=== PATIENT | female | born 1955 | race Caucasian/White ===

== ENCOUNTER 2021-11-01 13:23 | Inpatient (IN) ==
[2021-11-01] MEDS ORDERED: Cefepime HCl 2,000 MG in 0.9 % Sodium Chloride 10 ML IVP ONE (15:28)
[2021-11-01] MEDS ORDERED: Vancomycin 1,250 MG/262.5 ML IV.SOLN IVPB ONE (15:28)
[2021-11-01] MEDS: 0.9 % Sodium Chloride 1,000 ML IVC SCH ×3 (16:10→23:33)
[2021-11-01 16:21] LABS: Basophils # 0.1 K/mcL (0.0-0.2); Basophils % 0.2 %; Eosinophils % 0.1 %; Hematocrit 32.5 % (35.3-44.9); Hemoglobin 10.9 g/dL (11.5-15.4); Immature Granulocytes % 2.3 % (0-4); Lymphocytes # 0.7 K/mcL (0.6-4.6); Lymphocytes % 3.2 %; Mean Corpuscular HGB Conc 33.5 g/dL (31.6-35.5); Mean Corpuscular Hemoglobin 28.3 pg (28.0-33.3); Mean Corpuscular Volume 84.4 fL (83.0-100.0); Mean Platelet Volume 8.8 fL (9.4-12.4); Monocytes # 0.6 K/mcL (0.0-1.3); Monocytes % 2.6 %; Neutrophils # 19.5 K/mcL (1.6-8.9); Platelet Count 155 K/mcL (140-400); Red Blood Count 3.85 M/mcL (3.82-4.97); Red Cell Distribution Width 12.8 % (11.5-14.5); Segmented Neutrophils % 91.6 %; White Blood Count 21.2 K/mcL (4.3-11.1)
[2021-11-01 16:34] LABS: INR 1.5; Prothrombin Time 16.7 Seconds (9.4-12.1)
[2021-11-01 16:37] LABS: Activated Partial Thrombo Time 27.5 Seconds (26.0-36.0)
[2021-11-01 16:44] LABS: Alanine Aminotransferase 20 Units/L (7-52); Albumin 3.5 g/dL (3.5-5.7); Albumin/Globulin Ratio 1.3 (1.1-2.2); Alkaline Phosphatase 94 Units/L (34-104); Aspartate Amino Transferase 25 Units/L (13-39); BUN/Creatinine Ratio 13 (6-26); Bilirubin,Direct 0.3 mg/dL (0.0-0.2); Bilirubin,Indirect 0.4 mg/dL (0.0-1.0); Bilirubin,Total 0.7 mg/dL (0.3-1.0); Blood Urea Nitrogen 19 mg/dL (8-23); Calcium 8.4 mg/dL (8.6-10.3); Carbon Dioxide 25 mEq/L (23-29); Chloride 87 mEq/L (98-107); Globulin 2.7 g/dL (2.4-3.5); Glucose 101 mg/dL (70-105); Magnesium 1.6 mg/dL (1.6-2.6); Osmolality,Calculated 254 (280-300); Phosphorous 3.1 mg/dL (2.7-4.5); Potassium 4.1 mEq/L (3.5-5.1); Sodium 121 mEq/L (136-145); Total Protein 6.2 g/dL (6.4-8.9); Troponin I < 0.03 ng/mL (< 0.04)
[2021-11-01] MEDS ORDERED: Naloxone 0.4 MG/ML INJ IVP PRN (16:58)
[2021-11-01] MEDS: Nicotine 14 MG PATCH.TD24 TD SCH (17:23)
[2021-11-01 18:04] LABS: Influenza A PCR Negative (Negative); Influenza B PCR Negative (Negative); Resp. Syncytial Virus PCR Negative (Negative)
[2021-11-01 18:08] LABS: SARS-CoV-2 by PCR (In House) Negative (Negative)
[2021-11-01] MEDS: *HR* Heparin 5,000 UNIT/ML VIAL SQ SCH (23:32)
[2021-11-02] MEDS: Ondansetron 4 MG/2 ML VIAL IVP PRN ×2 (00:02→20:08)
[2021-11-02] MEDS: Acetaminophen 325 MG TABLET PO PRN ×3 (00:02→20:24)
[2021-11-02] MEDS: Piperacillin/Tazobactam 3.375 GM in 0.9 % Sodium Chloride Mini Bag 100 ML IVPB SCH ×3 (05:30→21:10)
[2021-11-02] MEDS: *HR* Heparin 5,000 UNIT/ML VIAL SQ SCH ×3 (05:31→21:29)
[2021-11-02 05:56] LABS: Bacteria,Urine Few per hpf (None-Few); Bilirubin,Urine Negative (Negative); Blood,Urine Trace (Negative); Clarity,Urine Clear (Clear); Color,Urine Yellow (Yellow); Glucose,Urine (UA) Normal (Normal); Hyaline Casts,Urine Few per lpf (None Seen); Ketones,Urine Negative (Negative); Leukocyte Esterase,Urine Negative (Negative); Mucus,Urine Few per lpf (None-Few); Nitrite,Urine Negative (Negative); Protein,Urine Trace mg/dL (Neg-Trace); RBC,Urine 0-3 per hpf (0-3); Specific Gravity,Urine 1.014 (1.010-1.025); Squamous Epithelial Cell,Urine Few per hpf (None-Few); Urobilinogen,Urine Normal (Normal); WBC,Urine 0-3 per hpf (0-3)
[2021-11-02 05:59] LABS: Hematocrit 28.9 % (35.3-44.9); Hemoglobin 9.7 g/dL (11.5-15.4); Mean Corpuscular HGB Conc 33.6 g/dL (31.6-35.5); Mean Corpuscular Hemoglobin 28.9 pg (28.0-33.3); Mean Platelet Volume 8.8 fL (9.4-12.4); Platelet Count 153 K/mcL (140-400); Red Blood Count 3.36 M/mcL (3.82-4.97); White Blood Count 24.5 K/mcL (4.3-11.1)
[2021-11-02 06:00] LABS: Basophils % 0.2 %; Eosinophils % 0.1 %; Immature Granulocytes % 1.8 % (0-4); Lymphocytes # 0.8 K/mcL (0.6-4.6); Lymphocytes % 3.3 %; Monocytes # 0.6 K/mcL (0.0-1.3); Monocytes % 2.6 %
[2021-11-02 06:02] LABS: Basophils # 0.1 K/mcL (0.0-0.2); Neutrophils # 22.5 K/mcL (1.6-8.9)
[2021-11-02 06:25] LABS: BUN/Creatinine Ratio 19 (6-26); Blood Urea Nitrogen 20 mg/dL (8-23); Calcium 7.4 mg/dL (8.6-10.3); Carbon Dioxide 20 mEq/L (23-29); Chloride 95 mEq/L (98-107); Glucose 94 mg/dL (70-105); Magnesium 1.4 mg/dL (1.6-2.6); Osmolality,Calculated 258 (280-300); Phosphorous 3.4 mg/dL (2.7-4.5); Sodium 123 mEq/L (136-145)
[2021-11-02] MEDS: Nicotine 14 MG PATCH.TD24 TD SCH (08:03)
[2021-11-02 09:41] LABS: C-Reactive Protein > 300 mg/L (Less than 10)
[2021-11-02] MEDS: 0.9 % Sodium Chloride 1,000 ML IVC SCH (12:32)
[2021-11-02] MEDS: Ipratropium/Albuterol Neb 3 ML IH PRN ×2 (14:58→21:39)
[2021-11-02] MEDS: Vancomycin 1,500 MG/265 ML IV.SOLN IVPB SCH (17:36)
[2021-11-02] MEDS ORDERED: Melatonin 3 MG TABLET PO ONE (22:02)
[2021-11-03 02:05] LABS: Basophils # 0.1 K/mcL (0.0-0.2); Basophils % 0.2 %; Eosinophils % 0.1 %; Hematocrit 27.4 % (35.3-44.9); Hemoglobin 9.1 g/dL (11.5-15.4); Lymphocytes % 3.6 %; Mean Corpuscular HGB Conc 33.2 g/dL (31.6-35.5); Mean Corpuscular Hemoglobin 28.4 pg (28.0-33.3); Mean Corpuscular Volume 85.6 fL (83.0-100.0); Mean Platelet Volume 9.5 fL (9.4-12.4); Monocytes # 0.6 K/mcL (0.0-1.3); Monocytes % 2.2 %; Neutrophils # 26.2 K/mcL (1.6-8.9); Platelet Count 196 K/mcL (140-400); Segmented Neutrophils % 90.9 %; White Blood Count 28.8 K/mcL (4.3-11.1)
[2021-11-03 02:22] LABS: Calcium 7.1 mg/dL (8.6-10.3)
[2021-11-03 03:24] LABS: Thyroid Stimulating Hormone 1.319 mcIU/mL (0.340-5.600)
[2021-11-03] MEDS: Ipratropium/Albuterol Neb 3 ML IH SCH ×6 (03:52→23:13)
[2021-11-03] MEDS: Piperacillin/Tazobactam 3.375 GM in 0.9 % Sodium Chloride Mini Bag 100 ML IVPB SCH ×3 (04:17→19:29)
[2021-11-03] MEDS: Acetaminophen 325 MG TABLET PO PRN ×2 (04:26→18:53)
[2021-11-03] MEDS: *HR* Heparin 5,000 UNIT/ML VIAL SQ SCH ×3 (06:22→21:39)
[2021-11-03] MEDS: 0.9 % Sodium Chloride 1,000 ML IVC SCH (07:33)
[2021-11-03] MEDS ORDERED: Iopamidol - 370 500 ML MLS IVP ONE (08:06)
[2021-11-03] MEDS ORDERED: 0.9 % Sodium Chloride 1,000 ML IVC SCH (08:15)
[2021-11-03] MEDS: Nicotine 14 MG PATCH.TD24 TD SCH (10:25)
[2021-11-03] MEDS ORDERED: Piperacillin/Tazobactam 3.375 GM VIAL ONE (11:45)
[2021-11-03] MEDS ORDERED: Menthol 1 EACH LOZENGE PO PRN (17:49)
[2021-11-03] MEDS: Vancomycin 1,500 MG/265 ML IV.SOLN IVPB SCH (17:50)
[2021-11-03] MEDS ORDERED: Melatonin 3 MG TABLET PO ONE (19:39)
[2021-11-03] MEDS: QUEtiapine Fumarate 25 MG TABLET PO SCH (21:39)
[2021-11-03] MEDS: traZODone 50 MG TABLET PO SCH (21:39)
[2021-11-04] MEDS: Piperacillin/Tazobactam 3.375 GM in 0.9 % Sodium Chloride Mini Bag 100 ML IVPB SCH ×3 (03:22→20:22)
[2021-11-04 03:52] LABS: Basophils % 0.1 %; Eosinophils # 0.1 K/mcL (0.0-0.6); Eosinophils % 0.4 %; Hematocrit 26.9 % (35.3-44.9); Hemoglobin 9.1 g/dL (11.5-15.4); Immature Granulocytes % 2.1 % (0-4); Lymphocytes # 1.4 K/mcL (0.6-4.6); Mean Corpuscular HGB Conc 33.8 g/dL (31.6-35.5); Mean Corpuscular Hemoglobin 28.8 pg (28.0-33.3); Mean Corpuscular Volume 85.1 fL (83.0-100.0); Mean Platelet Volume 8.4 fL (9.4-12.4); Monocytes # 0.8 K/mcL (0.0-1.3); Neutrophils # 17.7 K/mcL (1.6-8.9); Platelet Count 177 K/mcL (140-400); Red Blood Count 3.16 M/mcL (3.82-4.97); Red Cell Distribution Width 13.2 % (11.5-14.5); Segmented Neutrophils % 86.4 %; White Blood Count 20.5 K/mcL (4.3-11.1)
[2021-11-04 04:08] LABS: Calcium 7.3 mg/dL (8.6-10.3); Potassium 3.4 mEq/L (3.5-5.1)
[2021-11-04] MEDS: Ipratropium/Albuterol Neb 3 ML IH SCH ×5 (04:37→20:34)
[2021-11-04] MEDS: *HR* Heparin 5,000 UNIT/ML VIAL SQ SCH ×2 (05:42→12:29)
[2021-11-04] MEDS ORDERED: Calcium Gluconate 1gm/50mL 1 GM/50 ML BAG IVPB ONE (05:52)
[2021-11-04] MEDS: 0.9 % Sodium Chloride 1,000 ML IVC SCH (07:12)
[2021-11-04] MEDS: Nicotine 14 MG PATCH.TD24 TD SCH (09:32)
[2021-11-04] MEDS: BuPROPion XL (24 HR) 150 MG TABLET PO SCH (09:33)
[2021-11-04] MEDS: Spironolactone 25 MG TABLET PO SCH (09:33)
[2021-11-04] MEDS: QUEtiapine Fumarate 25 MG TABLET PO SCH ×3 (09:37→20:22)
[2021-11-04] MEDS: Acetaminophen 325 MG TABLET PO PRN (09:48)
[2021-11-04] MEDS: Vancomycin 1,500 MG/265 ML IV.SOLN IVPB SCH (14:57)
[2021-11-04] MEDS: Clindamycin 600 MG/50 ML 600 MG/50 ML IV.SOLN IVPB SCH (14:57)
[2021-11-04] MEDS: traZODone 50 MG TABLET PO SCH (20:22)
[2021-11-04] MEDS ORDERED: Ipratropium/Albuterol Neb 3 ML IH PRN (22:42)
[2021-11-05] MEDS: Clindamycin 600 MG/50 ML 600 MG/50 ML IV.SOLN IVPB SCH ×3 (01:30→16:28)
[2021-11-05] MEDS: *HR* Heparin 5,000 UNIT/ML VIAL SQ SCH ×3 (04:55→14:47)
[2021-11-05] MEDS: Piperacillin/Tazobactam 3.375 GM in 0.9 % Sodium Chloride Mini Bag 100 ML IVPB SCH ×3 (06:10→21:31)
[2021-11-05] MEDS: BuPROPion XL (24 HR) 150 MG TABLET PO SCH (08:04)
[2021-11-05] MEDS: Nicotine 14 MG PATCH.TD24 TD SCH (08:04)
[2021-11-05] MEDS: Spironolactone 25 MG TABLET PO SCH (08:05)
[2021-11-05] MEDS: QUEtiapine Fumarate 25 MG TABLET PO SCH ×3 (08:05→21:31)
[2021-11-05 09:47] LABS: Hematocrit 26.3 % (35.3-44.9); Hemoglobin 8.7 g/dL (11.5-15.4); Mean Corpuscular HGB Conc 33.1 g/dL (31.6-35.5); Mean Corpuscular Hemoglobin 29.1 pg (28.0-33.3); Mean Platelet Volume 8.2 fL (9.4-12.4); Platelet Count 175 K/mcL (140-400); Red Blood Count 2.99 M/mcL (3.82-4.97); Red Cell Distribution Width 13.3 % (11.5-14.5); White Blood Count 14.2 K/mcL (4.3-11.1)
[2021-11-05 10:12] LABS: Lymphocytes # 1.4 K/mcL (0.6-4.6); Monocytes # 1.1 K/mcL (0.0-1.3); Neutrophils # 11.6 K/mcL (1.6-8.9)
[2021-11-05 10:15] LABS: Hypochromasia Present (Not Present); Toxic Granulation Present (Not Present)
[2021-11-05 10:16] LABS: Anisocytosis 1+ (Not Present); Platelet Estimate Normal (Normal)
[2021-11-05] MEDS: Budesonide/Formoterol 160/4.5 1 PUFF INH IH SCH ×2 (10:49→22:50)
[2021-11-05] MEDS: Vancomycin 1,500 MG/265 ML IV.SOLN IVPB SCH (16:16)
[2021-11-05] MEDS: traZODone 50 MG TABLET PO SCH (21:30)
[2021-11-06] MEDS: Clindamycin 600 MG/50 ML 600 MG/50 ML IV.SOLN IVPB SCH ×4 (01:40→23:43)
[2021-11-06 02:40] LABS: Hematocrit 26.4 % (35.3-44.9); Hemoglobin 8.8 g/dL (11.5-15.4); Mean Corpuscular HGB Conc 33.3 g/dL (31.6-35.5); Mean Corpuscular Hemoglobin 28.9 pg (28.0-33.3); Mean Corpuscular Volume 86.6 fL (83.0-100.0); Mean Platelet Volume 8.7 fL (9.4-12.4); Platelet Count 200 K/mcL (140-400); Red Blood Count 3.05 M/mcL (3.82-4.97); Red Cell Distribution Width 13.4 % (11.5-14.5); White Blood Count 12.3 K/mcL (4.3-11.1)
[2021-11-06 03:05] LABS: Calcium 7.3 mg/dL (8.6-10.3)
[2021-11-06 04:22] LABS: Eosinophils # 0.3 K/mcL (0.0-0.6); Lymphocytes # 1.6 K/mcL (0.6-4.6); Monocytes # 0.7 K/mcL (0.0-1.3); Neutrophils # 9.5 K/mcL (1.6-8.9)
[2021-11-06 04:23] LABS: Platelet Estimate Normal (Normal)
[2021-11-06] MEDS: *HR* Heparin 5,000 UNIT/ML VIAL SQ SCH ×4 (05:07→21:59)
[2021-11-06] MEDS: Piperacillin/Tazobactam 3.375 GM in 0.9 % Sodium Chloride Mini Bag 100 ML IVPB SCH ×3 (05:07→19:56)
[2021-11-06] MEDS: Budesonide/Formoterol 160/4.5 1 PUFF INH IH SCH ×2 (08:07→20:08)
[2021-11-06] MEDS: BuPROPion XL (24 HR) 150 MG TABLET PO SCH (09:22)
[2021-11-06] MEDS: Nicotine 14 MG PATCH.TD24 TD SCH (09:22)
[2021-11-06] MEDS: QUEtiapine Fumarate 25 MG TABLET PO SCH ×3 (09:22→19:57)
[2021-11-06] MEDS: Spironolactone 25 MG TABLET PO SCH (09:23)
[2021-11-06] MEDS: Acetaminophen 325 MG TABLET PO PRN ×2 (12:46→20:00)
[2021-11-06] MEDS: traZODone 50 MG TABLET PO SCH (19:57)
[2021-11-07] MEDS ORDERED: Piperacillin/Tazobactam 3.375 GM VIAL ONE (04:26)
[2021-11-07] MEDS: *HR* Heparin 5,000 UNIT/ML VIAL SQ SCH ×3 (04:39→19:46)
[2021-11-07] MEDS: Piperacillin/Tazobactam 3.375 GM in 0.9 % Sodium Chloride Mini Bag 100 ML IVPB SCH ×3 (04:39→19:44)
[2021-11-07] MEDS: Budesonide/Formoterol 160/4.5 1 PUFF INH IH SCH ×2 (07:50→19:42)
[2021-11-07] MEDS: BuPROPion XL (24 HR) 150 MG TABLET PO SCH (08:24)
[2021-11-07] MEDS: QUEtiapine Fumarate 25 MG TABLET PO SCH ×3 (08:24→19:45)
[2021-11-07] MEDS: Spironolactone 25 MG TABLET PO SCH (08:24)
[2021-11-07] MEDS: Nicotine 14 MG PATCH.TD24 TD SCH (08:25)
[2021-11-07] MEDS: Clindamycin 600 MG/50 ML 600 MG/50 ML IV.SOLN IVPB SCH ×3 (10:03→23:43)
[2021-11-07] MEDS: Acetaminophen 325 MG TABLET PO PRN (12:58)
[2021-11-07] MEDS: traZODone 50 MG TABLET PO SCH (19:46)
[2021-11-08] MEDS: Acetaminophen 325 MG TABLET PO PRN ×2 (05:38→15:01)
[2021-11-08] MEDS: Piperacillin/Tazobactam 3.375 GM in 0.9 % Sodium Chloride Mini Bag 100 ML IVPB SCH ×3 (05:39→20:03)
[2021-11-08] MEDS: *HR* Heparin 5,000 UNIT/ML VIAL SQ SCH ×2 (05:39→14:59)
[2021-11-08 06:58] LABS: Hematocrit 26.6 % (35.3-44.9); Hemoglobin 8.7 g/dL (11.5-15.4); Mean Corpuscular HGB Conc 32.7 g/dL (31.6-35.5); Mean Corpuscular Hemoglobin 28.6 pg (28.0-33.3); Mean Corpuscular Volume 87.5 fL (83.0-100.0); Mean Platelet Volume 8.6 fL (9.4-12.4); Platelet Count 243 K/mcL (140-400); Red Blood Count 3.04 M/mcL (3.82-4.97); Red Cell Distribution Width 13.6 % (11.5-14.5); White Blood Count 8.3 K/mcL (4.3-11.1)
[2021-11-08 06:59] LABS: Basophils % 0.5 %; Eosinophils # 0.1 K/mcL (0.0-0.6); Eosinophils % 1.2 %; Immature Granulocytes % 5.6 % (0-4); Lymphocytes # 1.2 K/mcL (0.6-4.6); Lymphocytes % 14.1 %; Monocytes # 0.5 K/mcL (0.0-1.3); Monocytes % 6.3 %; Segmented Neutrophils % 72.3 %
[2021-11-08 07:22] LABS: Calcium 7.5 mg/dL (8.6-10.3); Potassium 3.7 mEq/L (3.5-5.1)
[2021-11-08 08:34] LABS: Platelet Estimate Normal (Normal)
[2021-11-08] MEDS: QUEtiapine Fumarate 25 MG TABLET PO SCH ×3 (08:52→19:18)
[2021-11-08] MEDS: Nicotine 14 MG PATCH.TD24 TD SCH (08:52)
[2021-11-08] MEDS: Spironolactone 25 MG TABLET PO SCH (08:52)
[2021-11-08] MEDS: BuPROPion XL (24 HR) 150 MG TABLET PO SCH (08:52)
[2021-11-08] MEDS: Clindamycin 600 MG/50 ML 600 MG/50 ML IV.SOLN IVPB SCH (08:53)
[2021-11-08] MEDS: Budesonide/Formoterol 160/4.5 1 PUFF INH IH SCH ×2 (10:02→21:57)
[2021-11-08 18:01] LABS: Adenovirus Not Detected (Not Detect); Bordetella Pertussis Not Detected (Not Detect); Chlamydophila pneumoniae Not Detected (Not Detect); Coronavirus 229E Not Detected (Not Detect); Coronavirus HKU1 Not Detected (Not Detect); Coronavirus NL63 Not Detected (Not Detect); Coronavirus OC43 Not Detected (Not Detect); Human Metapneumovirus Not Detected (Not Detect); Human Rhinovirus/Enterovirus Not Detected (Not Detect); Influenza A Subtype 2009 H1 Not Detected (Not Detect); Influenza B Not Detected (Not Detect); Mycoplasma pneumoniae Not Detected (Not Detect); Parainfluenza Virus 1 Not Detected (Not Detect); Parainfluenza Virus 2 Not Detected (Not Detect); Parainfluenza Virus 3 Not Detected (Not Detect); Parainfluenza Virus 4 Not Detected (Not Detect); Respiratory Syncytial Virus Not Detected (Not Detect); SARS-CoV-2 Not Detected (Not Detect)
[2021-11-08 18:31] VITALS: BP 115/71; PULSE 89; TEMP 98.3
[2021-11-08] MEDS: traZODone 50 MG TABLET PO SCH (19:18)
[2021-11-08 22:00] VITALS: O2SAT 97
== END 2021-11-08 22:35 | DRG 872 ==
LOC: 3ANU 13:23 → EMEROOARM 13:23 → SUATTDRO 18:20 → 3ANU 19:43
PROVIDERS: ADMIT Internal Medicine; ATTEND Registered Nurse